=== PATIENT | female | born 1945 | race Caucasian/White ===

== ENCOUNTER 2020-02-05 13:33 | Outpatient (CLI) | payer MEDICARE, SELFPAY ==
--- NOTE | ~2020-02-05 | CT_ITS ---
EXAMINATION: CT chest wo con DATE: 02/05/2020 14:17 INDICATION: Solitary pulmonary nodule TECHNIQUE: Computed tomography (CT) of the chest was performed without intravenous contrast. The dose -length product (DLP) was 180.24 mGy-cm. Automated exposure control and iterative reconstruction tech ufindadsque were employed. COMPARISON: 05/22/2019, 05/29/2017 FINDINGS: There is severe emphysema. A 7 mm part solid nodule is present in the right lower lobe whic h demonstrates a stable 4 mm solid component (image 74). Although stable in size, the nodule appears to have slightly increased in density and there is suggestion of subtle spiculation surrounding the n odule. No new pulmonary nodules are identified. There is no pleural effusion or pneumothorax. Surgica l clips are noted in the left axilla. There are changes of bilateral mastectomy. No pathologically en larged thoracic lymph nodes are identified. The heart size is normal. Calcified coronary artery ather osclerosis is noted. An unchanged 2.2 cm left adrenal mass is consistent with an adenoma. There is m ild thoracic spondylosis. IMPRESSION: 1. Part solid nodule with tiny solid component in the right lower lobe with apparent slight increase in density and suggestion of subtle spiculation. CT-guided biopsy is recommended. 2. Severe emphysema. Reviewed, dictated and finalized at location A. IMPRESSION: 1. Part solid nodule with tiny solid component in the right lower lobe with gricelda arent slight increase in density and suggestion of subtle spiculation. CT-guide d biopsy is recommended. 2. Severe emphysema.
== END 2020-02-05 13:34 | disposition home or self-care (01) ==
PROVIDERS: PCP Family Medicine; Visit Provider Nurse Practitioner Family
DX: R91.1 Solitary pulmonary nodule (principal); J43.9 Emphysema, unspecified
CPT/HCPCS: 71250

== ENCOUNTER 2020-05-11 12:44 | Outpatient (CLI) | payer MEDICARE, SELFPAY ==
--- NOTE | ~2020-05-11 | CT_ITS ---
EXAMINATION: CT chest wo con DATE: 05/11/2020 13:08 INDICATION: RLL nodule TECHNIQUE: Computed tomography (CT) of the chest was performed without intravenous contrast. Addition al 3D reconstructions utilizing coronal maximum intensity projection (MIP) were performed. Automated exposure control and iterative reconstruction technique were employed. The dose-length product was 93 .47 mGy-cm. COMPARISON: 02/05/2020 FINDINGS: Severe emphysema. No interval change in part solid right lower lobe nodule with groundglass component measuring 9 x 6 x 5 mm with approximately 3 mm solid component. No other suspicious pulmonary nodule s, pneumonia, pulmonary edema or pleural effusion. Heart size is normal. Atherosclerotic coronary art yelena calcific calcification. No pericardial effusion. No pathologically enlarged thoracic lymphadenopa thy. Normal caliber thoracic aorta. Atherosclerotic calcification which may be hemodynamically signif icant at the origin of the right subclavian artery. Surgical clips at the bilateral axilla. 2.5 cm le ft adrenal adenoma. Thoracic kyphosis with mild spondylosis. IMPRESSION: 1. No interval change since the most recent study in a 9 x 6 x 5 mm part solid right lower lobe nodul e which has previously demonstrated slow growth dating back to 05/29/2017 and which remains concernin g for slowly growing malignancy such as bronchoalveolar carcinoma. 2. Severe emphysema. 3. Potentially hemodynamically significant atherosclerotic calcification at the origin of the right s ubclavian artery. Reviewed, dictated and finalized at location A. IMPRESSION: 1. No interval change since the most recent study in a 9 x 6 x 5 mm part solid right lower lobe nodule which has previously demonstrated slow growth dating ba ck to 05/29/2017 and which remains concerning for slowly growing malignancy suc h as bronchoalveolar carcinoma. 2. Severe emphysema. 3. Potentially hemodynamically significant atherosclerotic calcification at the origin of the right subclavian artery.
== END 2020-05-11 12:45 | disposition home or self-care (01) ==
LOC: ANHIMG 12:50
PROVIDERS: PCP Family Medicine; Visit Provider Internal Medicine Critical Care Medicine
DX: R91.1 Solitary pulmonary nodule (principal); J43.9 Emphysema, unspecified; I25.10 Atherosclerotic heart disease of native coronary artery without angina pectoris
CPT/HCPCS: 71250

== ENCOUNTER 2020-08-10 07:57 | Outpatient (CLI) | payer MEDICARE, SELFPAY ==
--- NOTE | ~2020-08-10 | CT_ITS ---
EXAMINATION: CT chest wo con EXAM DATE: 08/10/2020 08:19 INDICATION: R91.1 - Solitary pulmonary nodule. TECHNIQUE: Spiral CT of the chest without contrast. Axial, coronal and sagittal images were reviewe d. Coronal maximum intensity pixel images of chest reviewed. The dose-length product (DLP) for this examination was 88.13 mGy-cm. The exposure was tailored according to patient size (auto mA exposure control), and iterative reconstruction (ASIR) was used as additional dose reduction technique. Jesus rison is made to prior examination from 05/11/2020, 02/05/2020. FINDINGS: There is moderate to severe emphysema and hyperinflation. There is 4 x 6 mm subsolid densi ty right lower lobe nodule unchanged compared to the most recent 2 exams from 2019, was about 2 mm in 2017. This is most likely postinfectious but longer interval 1 year follow-up low-dose chest CT with out contrast recommended. Biapical scarring. There are no pleural or pericardial effusions. Trache obronchial tree is patent. There is no mediastinal, hilar or axillary lymphadenopathy. There is n o pneumothorax. Heart normal in size. There is moderate coronary arterial calcification, arterial sclerosis. Left adrenal 2.4 cm adenoma. Small sclerotic focus in left 7th rib posteriorly, probabl y bone island unchanged. IMPRESSION: 1. Small right lower lobe subsolid nodule unchanged. Longer interval, one-year follow-up LDCT recomm ended. 2. Moderate to severe emphysema and hyperinflation. 3. Left adrenal adenoma. Reviewed, dictated and finalized at location B. ER SUPERVISOR IMPRESSION: 1. Small right lower lobe subsolid nodule unchanged. Longer interval, one-year follow-up LDCT recommended. 2. Moderate to severe emphysema and hyperinflation. 3. Left adrenal adenoma.
== END 2020-08-10 07:58 | disposition home or self-care (01) ==
PROVIDERS: PCP Family Medicine; Visit Provider Internal Medicine Critical Care Medicine
DX: R91.1 Solitary pulmonary nodule (principal); J43.9 Emphysema, unspecified; R91.8 Other nonspecific abnormal finding of lung field; D35.02 Benign neoplasm of left adrenal gland
CPT/HCPCS: 71250

== ENCOUNTER 2020-11-03 12:25 | Outpatient (CLI) | payer MEDICARE, SELFPAY ==
[2020-11-03 13:00] VITALS: PULSE 96; O2SAT 85
[2020-11-03 13:10] VITALS: PULSE 98; PULSE 99; O2SAT 90; O2SAT 92
--- NOTE | 2020-11-03 13:36 | HOMEO2EVAL ---
Home Oxygen Evaluation RC: Home Oxygen (O2) Evaluation Start: 11/03/20 13:29 Freq: Status: Active Protocol: RPE Activity Type Activity Date Activity User E-Sign Co-Sign Detail Recorded Client Recorded Date Recorded By Document 11/03/20 13:00 [email or web address] [email or web address] 11/03/20 13:31 KMV Document 11/03/20 13:10 [email or web address] [email or web address] 11/03/20 13:31 KMV Document 11/03/20 13:10 KMV [email or web address] 11/03/20 13:34 KMV Document 11/03/20 13:34 KMV [email or web address] 11/03/20 13:34 KMV 11/03/20 11/03/20 11/03/20 13:00 13:10 13:10 Home O2 Evaluation Test Phase Resting Resting Exercise Oxygen Delivery Room Air Nasal Cannula Nasal Cannula Oxygen Flow Rate (L/min) 2 2 Pulse Oximetry (90-100 %) 85 L 92 90 Pulse Rate (60-100 beats/min) 96 99 98 Activity Tolerance Fair Rating of Perceived Dyspnea (PD) +2 Mild, Some Difficulty, Noticeable to the Observer Rate of Perceived Exertion (PE) Ambulation Distance (feet) 225 Home Oxygen Evaluation Comments pt has oxygen at home established. Treatment Charges O2 Evaluation - Outpatient 11/03/20 13:34 Home O2 Evaluation Test Phase Oxygen Delivery Oxygen Flow Rate (L/min) Pulse Oximetry (90-100 %) Pulse Rate (60-100 beats/min) Activity Tolerance Rating of Perceived Dyspnea (PD) Rate of Perceived Exertion (PE) 11 Fairly light Ambulation Distance (feet) Home Oxygen Evaluation Comments Treatment Charges
== END 2020-11-03 12:26 | disposition home or self-care (01) ==
PROVIDERS: PCP Family Medicine; Visit Provider Nurse Practitioner Family
DX: R06.02 Shortness of breath (principal)
CPT/HCPCS: 94618

== ENCOUNTER 2020-12-13 09:40 | Outpatient (CLI) | payer MEDICARE, SELFPAY ==
--- NOTE | ~2020-12-13 | CT_ITS ---
EXAMINATION: CT diagnostic chest wo con DATE: 12/13/2020 10:15 INDICATION: Solitary pulmonary nodule TECHNIQUE: Computed tomography (CT) of the chest was performed without intravenous contrast. The dose -length product (DLP) was 94.71 mGy-cm. Automated exposure control and iterative reconstruction techn ique were employed. COMPARISON: 08/10/2020, 02/05/2020, 05/22/2019 FINDINGS: A 7 mm nodule of the right lower lobe demonstrates slow increase in size over multiple exam inations. The nodule is now mostly solid, previously predominantly groundglass. There is severe emphy sema. The lungs are free of acute opacities. There is no pleural effusion or pneumothorax. Subendocar dial fat deposition in the cardiac apex and interventricular septum is consistent with prior myocardi al infarction. Coronary artery atherosclerosis is noted. There are no pathologically enlarged thoraci c lymph nodes. A 2.7 cm low-attenuation mass of the left adrenal gland is consistent with an adenoma. IMPRESSION: 1. Slow interval increase in size in a now predominantly solid right lower lobe nodule, concerning fo r slow growing malignancy. 2. Severe emphysema. Reviewed, dictated and finalized at location A. IMPRESSION: 1. Slow interval increase in size in a now predominantly solid right lower lobe nodule, concerning for slow growing malignancy. 2. Severe emphysema.
== END 2020-12-13 09:41 | disposition home or self-care (01) ==
PROVIDERS: PCP Family Medicine; Visit Provider Nurse Practitioner Family
DX: R91.1 Solitary pulmonary nodule (principal); J43.9 Emphysema, unspecified
CPT/HCPCS: 71250

== ENCOUNTER 2021-07-25 09:11 | Outpatient (CLI) | payer MEDICARE, SELFPAY ==
--- NOTE | ~2021-07-25 | CT_ITS ---
EXAMINATION: CT diagnostic chest wo con DATE: 07/25/2021 09:40 INDICATION: Lung nodule, history of breast cancer TECHNIQUE: Computed tomography (CT) of the chest was performed without intravenous contrast. The dose -length product (DLP) was 72.82 mGy-cm. Automated exposure control and iterative reconstruction techn ique were employed. COMPARISON: 12/13/2020, 08/10/2020, 05/22/2019 FINDINGS: There is severe emphysema. A 9 mm groundglass nodule with solid components is present in th e right lower lobe which continues to slowly increase in size. There is a new 5 mm nodule of the righ t lower lobe on image 83. There is no pleural effusion or pneumothorax. There is calcified coronary a rtery atherosclerosis. Subendocardial fat deposition in the cardiac apex and interventricular septum is consistent with prior myocardial infarction. There are no pathologically enlarged thoracic lymph n odes. Changes of bilateral mastectomy and axillary lymph node dissection are noted. There is a 2.7 cm adenoma of the left adrenal gland. There is mild thoracic spondylosis. IMPRESSION: 1. Continued slow interval increase in size of a right lower lobe nodule, likely slow growing maligna ncy. 2. New 5 mm nodule of the right lower lobe, indeterminate. Reviewed, dictated and finalized at location A. ESS SERVER IMPRESSION: 1. Continued slow interval increase in size of a right lower lobe nodule, likel y slow growing malignancy. 2. New 5 mm nodule of the right lower lobe, indeterminate.
== END 2021-07-25 09:12 | disposition home or self-care (01) ==
LOC: ANHIMG 09:15
PROVIDERS: PCP Family Medicine; Visit Provider Nurse Practitioner Family
DX: R91.1 Solitary pulmonary nodule (principal)
CPT/HCPCS: 71250

== ENCOUNTER 2021-08-25 08:40 | Outpatient (CLI) | payer MEDICARE, SELFPAY ==
--- NOTE | ~2021-08-25 | PE_ITS ---
EXAMINATION: PET skull to mid thigh DATE: 08/25/2021 12:32 INDICATION: Solitary pulmonary nodule. TECHNIQUE: Blood glucose level was 103 mg/dL. 11.108 mCi of 18-fluorodeoxyglucose (18-FDG) was admini stered i.v. Low dose computed tomography (CT) images were acquired from the base of the brain to the proximal thighs for attenuation correction and anatomic localization. Automated exposure control was employed. Dose-length product (DLP) was 470 mGy-cm. Positron emission tomography (PET) images were ac quired in the same distribution. 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 There is increased activity in the glottis without abnormal CT correlate, likely physiologic. There are no pathologically enlarge d lymph nodes. Chest: There is mild scarring at the lung apices. There is severe emphysema. There is a 10 mm part-so lid nodule in right lower lobe with maximum SUV of 1.0, increased from 8 mm on 08/10/20. There is a 5 mm nodule in right lower lobe without increased activity, new from 08/10/20, probably benign. No ple ural effusion. The heart size is normal. There are coronary artery calcifications. No pericardial eff usion. Abdomen/pelvis/proximal thighs: The liver, gallbladder, spleen, and right adrenal gland are normal. T here is a 2.6 cm mass in left adrenal gland measuring low attenuation without increased activity, con sistent with an adenoma. The kidneys are normal. There are no dilated loops of bowel. There is divert iculosis of the colon without evidence of diverticulitis. There are no pathologically enlarged lymph nodes. There is no free intraperitoneal fluid. There is a small sliding hiatal hernia. There is no os seous malignancy. IMPRESSION: 1. 10 mm part-solid nodule without increased activity in right lung lower lobe, increased from 8 mm on 08/10/20, suspicious for primary bronchogenic carcinoma. The patient is likely not a biopsy candid ate due to home oxygen use. 2. Severe emphysema. Reviewed, dictated and finalized at location B. [employer] CONSULTANT IMPRESSION: 1. 10 mm part-solid nodule without increased activity in right lung lower lobe , increased from 8 mm on 08/10/20, suspicious for primary bronchogenic carcinom a. The patient is likely not a biopsy candidate due to home oxygen use. 2. Severe emphysema.
[2021-08-25 09:18] LABS: Glucose Point of Care 103 mg/dl (65-105)
== END 2021-08-25 08:41 | disposition home or self-care (01) ==
PROVIDERS: PCP Family Medicine; Visit Provider Nurse Practitioner Family
DX: R91.1 Solitary pulmonary nodule (principal); J43.9 Emphysema, unspecified
CPT/HCPCS: 78815; A9552

== ENCOUNTER 2021-09-13 17:05 | Outpatient (CLI) | payer MEDICARE, SELFPAY ==
[2021-09-13 18:15] LABS: Alanine Aminotransferase 21 U/L (4-35); Aspartate Amino Transferase 34 U/L (14-36)
== END 2021-09-13 17:06 | disposition home or self-care (01) ==
LOC: ANHLAB 17:11
PROVIDERS: PCP Family Medicine; Visit Provider Podiatrist Foot & Ankle Surgery
DX: B35.1 Tinea unguium (principal)
CPT/HCPCS: 36415; 84450; 84460

== ENCOUNTER 2022-07-10 10:12 | Outpatient (CLI) | payer MEDICARE, SELFPAY ==
--- NOTE | ~2022-07-10 | CT_ITS ---
EXAMINATION: CT diagnostic chest wo con DATE: 07/10/2022 10:30 INDICATION: Follow-up of 10 mm part solid nodule without increased FDG uptake, right lower lobe, incr eased from 8 mm on 08/10/2020, reported suspicious for bronchogenic carcinoma on 08/25/2021 PET/CT sca n TECHNIQUE: Computed tomography (CT) of the chest was performed without intravenous contrast. Automate d exposure control and iterative reconstruction technique were employed. Exam dose: 94.83 mGy-cm tot al exam DLP. COMPARISON: 08/25/2021 PET/CT scan 07/25/2021 CT chest FINDINGS: Bilateral stable apical scarring, right greater than left. Prominent emphysematous changes of the lungs. Part solid right lower lobe pulmonary nodule currently measures approximately 7.1 x 8.5 mm compared t o 7.5 x 9.2 mm on 07/25/2021. There is mild discoid atelectasis or scarring in the bases of the lower lobes and lingula. No interval pulmonary mass density is noted since 07/25/2021. No hilar or mediastinal mass lesion or lymphadenopathy. Normal heart size. Coronary artery calcifications. Prominent thoracic aortic and great vessel calcifi cations. No thoracic aortic aneurysm. Stable approximately 2.7 cm left adrenal mass lesion. Normal right adrenal gland. .No suspicious osteolytic or osteoblastic lesions are detected. IMPRESSION: Slight decrease in size of part solid right lower lobe pulmonary nodule since 07/25/2021 Emphysema Stable 2.7 cm left adrenal mass, likely adenoma Reviewed, dictated and finalized at Location A. Reviewed, dictated and finalized at location B. IDE BONE ROLLER IMPRESSION: Slight decrease in size of part solid right lower lobe pulmonary n odule since 07/25/2021 Emphysema Stable 2.7 cm left adrenal mass, likely adenoma
== END 2022-07-10 10:13 | disposition home or self-care (01) ==
LOC: ANHIMG 10:14
PROVIDERS: PCP Family Medicine; Visit Provider Physician Assistant
DX: R91.1 Solitary pulmonary nodule (principal); J43.9 Emphysema, unspecified; D35.02 Benign neoplasm of left adrenal gland
CPT/HCPCS: 71250

== ENCOUNTER 2022-07-12 11:04 | Outpatient (CLI) | payer MEDICARE, SELFPAY | END 2022-07-12 11:05 | disposition home or self-care (01) | LOC: CHSLAB 11:06 | PROVIDERS: PCP Family Medicine; Visit Provider Nurse Practitioner Family | DX: J18.9 Pneumonia, unspecified organism (principal) | CPT/HCPCS: 87070; 87205 ==

== ENCOUNTER 2022-07-21 10:01 | Outpatient (CLI) | payer MEDICARE, SELFPAY ==
[2022-07-21 10:18] LABS: Basophils Absolute Auto 0.02 K/mm3 (0.00-0.10); Basophils Percent Auto 0.2 % (0.0-1.0); Eosinophils Absolute Auto 0.02 K/mm3 (0.02-0.50); Eosinophils Percent Auto 0.2 % (1.0-6.0); Hematocrit 41.6 % (35.0-42.0); Hemoglobin 13.3 g/dL (11.7-13.8); Immature Granulocyte Absolute 0.06 K/mm3 (0.00-0.00); Immature Granulocyte Percent A 0.5 % (0.0-0.0); Lymphocytes Absolute Auto 1.45 K/mm3 (1.10-4.50); Lymphocytes Percent Auto 12.4 % (18.0-42.0); Mean Corpuscular Volume 100.2 fL (78.0-102.0); Mean Platelet Volume 9.5 fl (9.2-11.8); Monocytes Percent Auto 9.4 % (2.0-11.0); Neutrophils Absolute Auto 9.1 K/mm3 (1.7-7.2); Neutrophils Percent Auto 77.3 % (50.0-70.0); Platelet Count Result 314 K/mm3 (150-420); Red Blood Count 4.15 M/mm3 (4.20-5.40); Red Cell Distribution Width 11.7 % (11.6-14.4); White Blood Count 11.7 K/mm3 (4.8-10.8)
[2022-07-21 10:53] LABS: Influenza A QL RT-PCR Negative (Negative); Influenza B QL RT-PCR Negative (Negative); SARS-CoV-2 RNA PCR Positive (Negative)
[2022-07-21 10:59] LABS: RSV RNA, RT-PCR Negative (Negative)
[2022-07-21 11:01] LABS: Alanine Aminotransferase 32 U/L (14-59); Albumin Level 3.4 g/dL (3.4-5.0); Alkaline Phosphatase 77 U/L (46-116); Anion Gap 8 mmol/L (8-16); Aspartate Amino Transferase 20 U/L (15-37); Bilirubin,Total 0.4 mg/dL (0.00-1.00); Blood Urea Nitrogen 15 mg/dL (7-18); Calcium 9.2 mg/dL (8.5-10.1); Carbon Dioxide 34 mmol/L (21-32); Chloride 100 mmol/L (98-108); Estimated Glomerular Filt Rate > 60; Glucose 102 mg/dL (70-99); NT Pro B Type Natriuretic Pept 385 pg/mL (0-450); Osmolality Calculated 294 mOsm/kg (285-295); Potassium 3.3 mmol/L (3.5-5.1); Sodium 142 mmol/L (136-145); Total Protein 6.7 g/dL (6.4-8.2)
== END 2022-07-21 10:02 | disposition home or self-care (01) ==
LOC: CHSLAB 10:03
PROVIDERS: PCP Family Medicine; Visit Provider Nurse Practitioner Family
DX: J44.9 Chronic obstructive pulmonary disease, unspecified (principal); R06.00 Dyspnea, unspecified; R05.9 Cough, unspecified; R09.02 Hypoxemia; Z20.822 Contact with and (suspected) exposure to COVID-19
CPT/HCPCS: 36415; 80053; 83880; 85025; 87637

== ENCOUNTER 2022-08-02 12:08 | Outpatient (CLI) | payer MEDICARE, SELFPAY ==
[2022-08-02 12:49] LABS: Alanine Aminotransferase 23 U/L (14-59); Albumin Level 3.2 g/dL (3.4-5.0); Alkaline Phosphatase 67 U/L (46-116); Anion Gap 4 mmol/L (8-16); Aspartate Amino Transferase 15 U/L (15-37); Bilirubin,Total 0.3 mg/dL (0.00-1.00); Blood Urea Nitrogen 10 mg/dL (7-18); Calcium 8.6 mg/dL (8.5-10.1); Carbon Dioxide 32 mmol/L (21-32); Chloride 106 mmol/L (98-108); Estimated Glomerular Filt Rate > 60; Glucose 168 mg/dL (70-99); Osmolality Calculated 297 mOsm/kg (285-295); Potassium 4.4 mmol/L (3.5-5.1); Sodium 142 mmol/L (136-145); Total Protein 6.1 g/dL (6.4-8.2)
== END 2022-08-02 12:09 | disposition home or self-care (01) ==
LOC: CHSLAB 12:10
PROVIDERS: PCP Family Medicine; Visit Provider Nurse Practitioner Family
DX: J44.9 Chronic obstructive pulmonary disease, unspecified (principal)
CPT/HCPCS: 36415; 80053

== ENCOUNTER 2022-09-27 09:06 | Outpatient (CLI) | payer MEDICARE, SELFPAY | END 2022-09-27 09:07 | disposition home or self-care (01) | LOC: CHSLAB 09:07 | PROVIDERS: PCP Family Medicine; Visit Provider Internal Medicine Critical Care Medicine | DX: J44.9 Chronic obstructive pulmonary disease, unspecified (principal); R82.90 Unspecified abnormal findings in urine | CPT/HCPCS: 87015; 87070; 87102; 87116; 87205; 87206 ==

== ENCOUNTER 2022-09-28 13:19 | Outpatient (CLI) | payer MEDICARE, SELFPAY | END 2022-09-28 13:20 | disposition home or self-care (01) | PROVIDERS: PCP Family Medicine; Visit Provider Nurse Practitioner Family | DX: R09.3 Abnormal sputum (principal) | CPT/HCPCS: 87015; 87070; 87102; 87116; 87205; 87206 ==

== ENCOUNTER 2023-01-01 13:47 | Outpatient (CLI) | payer MEDICARE, SELFPAY | END 2023-01-01 13:48 | disposition home or self-care (01) | LOC: CHSLAB 13:51 | PROVIDERS: PCP Family Medicine | DX: B45.9 Cryptococcosis, unspecified (principal); R91.1 Solitary pulmonary nodule | CPT/HCPCS: 87015; 87102; 87116; 87206 ==

== ENCOUNTER 2023-03-29 12:16 | Outpatient (CLI) | payer MEDICARE, SELFPAY ==
--- NOTE | ~2023-03-29 | CT_ITS ---
EXAMINATION: CT sinus wo con DATE: 03/29/2023 13:01 INDICATION: Acute sinusitis, unspecified TECHNIQUE: Computed tomography (CT) of the paranasal sinuses was performed without intravenous contra st. The dose-length product (DLP) was 305.77 mGy-cm. Iterative reconstruction was used. COMPARISON: None FINDINGS: There is normal development and pneumatization of the paranasal sinuses. There is minimal o pacification of the posterior ethmoidal air cells on the left. The frontal, sphenoid, and maxillary s inuses are clear. The bilateral ostiomeatal complexes are patent. Visualized soft tissues are unremar kable. IMPRESSION: 1. Minimal left posterior ethmoidal air cell opacification. Reviewed, dictated and finalized at location L.
== END 2023-03-29 12:17 | disposition home or self-care (01) ==
LOC: CHSIMG 12:17
PROVIDERS: PCP Family Medicine; Visit Provider Otolaryngology
DX: J01.90 Acute sinusitis, unspecified (principal)
CPT/HCPCS: 70486